=== PATIENT | female | born 1955 | race Caucasian/White ===

== ENCOUNTER 2020-08-30 11:32 | Observation (INO) | payer MEDICARE, OTHER ==
[~2020-08-30] VITALS: Ht 160 cm; Wt 93.9 kg
[2020-08-30 13:31] LABS: HEMOGLOBIN 13.5 gm/dl (12.3-15.3); RED BLOOD COUNT 4.61 M/UL (4.00-5.10); WHITE BLOOD COUNT 7.5 K/UL (4.5-11.0)
[2020-08-30] MEDS ORDERED: PROTONIX 40 MG40 M1 PO (15:19)
[2020-08-30] MEDS ORDERED: LIPITOR40 MG PO (15:20)
[2020-08-30] MEDS ORDERED: DITROPAN XL10 MG PO (15:20)
[2020-08-30] MEDS ORDERED: ELIQUIS 5 MG TAB5 MG PO (15:20)
[2020-08-30] MEDS ORDERED: PEPCID20 MG PO (15:20)
[2020-08-30] MEDS ORDERED: HYDROCHLOROTH12.5 MG PO (15:21)
[2020-08-30] MEDS ORDERED: VISTARIL 50 MG50 MG PO (15:22)
[2020-08-30] MEDS ORDERED: LOPRESSOR 50 MG50 MG PO (15:25)
[2020-08-30] MEDS ORDERED: ASPIRIN EC81 MG PO (15:46)
--- NOTE | 2020-08-31 10:45 | NUR ---
DR GUILLEN HERE TO SEE PT AND DO PEG WITH CARDIOVERSION. PROCEDURE STARTED AT 1027, 4MG VERSED, 50MG FENTANYL AND 25MG OF BENADRYL GIVEN DURING PROCEDURE, PT WAS SHOCKED AT 1042 WITH 200J AND NORMAL SINUS RYTHYM WAS OBTAINED AT THIS TIME. WILL CONTINUE TO MONITOR
--- NOTE | 2020-08-31 14:00 | NUR ---
NO CHANGE FROM PREVIOUS ASSESSMENT
[2020-09-01] MEDS ORDERED: BETAPACE 80MG T80 MG PO (10:30)
== END 2020-09-01 13:02 | disposition home or self-care (01) ==
LOC: ER1 11:32 → CDU 15:16 → PROG CARE 15:16
PROVIDERS: Physician Assistant Medical; ADMIT Internal Medicine
DX: I48.19 Other persistent atrial fibrillation (principal); I11.0 Hypertensive heart disease with heart failure; I50.31 Acute diastolic (congestive) heart failure; R32 Unspecified urinary incontinence; E78.5 Hyperlipidemia, unspecified; K21.9 Gastro-esophageal reflux disease without esophagitis; R19.7 Diarrhea, unspecified; R14.0 Abdominal distension (gaseous); Z79.01 Long term (current) use of anticoagulants; Z79.82 Long term (current) use of aspirin; Z79.899 Other long term (current) drug therapy; Z20.822 Contact with and (suspected) exposure to COVID-19
CPT/HCPCS: 71045; 80053; 82550; 82553; 83735; 83874; 83880; 84439; 84443; 84484; 85025; 85610; 92960; 93005; 93312; 93320; 96374; 96375; 96376; 99285; G0378; J1200; J1940; J2250; J3010; Q0177; U0002

== ENCOUNTER 2021-02-07 08:37 | Emergency (ER) | payer MEDICARE, OTHER ==
[~2021-02-07 08:37] MED LIST: ASPIRIN EC81 MG PO; BETAPACE 80MG T80 MG PO; DITROPAN XL10 MG PO; ELIQUIS 5 MG TAB5 MG PO; HYDROCHLOROTH12.5 MG PO; LIPITOR40 MG PO; LOPRESSOR 50 MG50 MG PO; PEPCID20 MG PO; PROTONIX 40 MG40 M1 PO; VISTARIL 50 MG50 MG PO
[2021-02-07 10:06] LABS: HEMOGLOBIN 14.5 gm/dl (12.3-15.3); RED BLOOD COUNT 5.05 M/UL (4.00-5.10); WHITE BLOOD COUNT 10.1 K/UL (4.5-11.0)
[2021-02-07 10:34] LABS: BUN/CREATININE RATIO 23 (0-10)
[2021-02-07] MEDS ORDERED: MACROBID 100 M100 MG PO (12:47)
== END 2021-02-07 13:06 | disposition home or self-care (01) ==
LOC: ER1 08:37
PROVIDERS: Physician Assistant
DX: N39.0 Urinary tract infection, site not specified (principal); I10 Essential (primary) hypertension; I48.91 Unspecified atrial fibrillation; Z90.710 Acquired absence of both cervix and uterus; Z79.01 Long term (current) use of anticoagulants
CPT/HCPCS: 71045; 80053; 81001; 82550; 82553; 83874; 83880; 84484; 85025; 93005; 99284; Q9967

== ENCOUNTER 2021-06-08 21:39 | Emergency (ER) | payer MEDICARE, OTHER ==
[~2021-06-08 21:39] MED LIST changes: +MACROBID 100 M100 MG PO
[2021-06-08 23:50] LABS: HEMOGLOBIN 14.4 gm/dl (12.3-15.3); RED BLOOD COUNT 4.99 M/UL (4.00-5.10); WHITE BLOOD COUNT 7.9 K/UL (4.5-11.0)
[2021-06-09 00:19] LABS: BUN/CREATININE RATIO 18 (0-10)
== END 2021-06-09 03:05 | disposition home or self-care (01) ==
LOC: ER1 21:39
PROVIDERS: Physician Assistant Medical
DX: I10 Essential (primary) hypertension (principal); I48.91 Unspecified atrial fibrillation
CPT/HCPCS: 71045; 80053; 82550; 82553; 83880; 84484; 85025; 93005; 99284

== ENCOUNTER 2021-10-04 00:21 | Emergency (ER) | payer MEDICARE, OTHER ==
[2021-10-04 04:18] LABS: HEMOGLOBIN 13.7 gm/dl (12.3-15.3); RED BLOOD COUNT 4.72 M/UL (4.00-5.10); WHITE BLOOD COUNT 10.6 K/UL (4.5-11.0)
== END 2021-10-04 05:34 | disposition home or self-care (01) ==
LOC: ER1 00:21
PROVIDERS: Family Medicine
DX: R19.00 Intra-abdominal and pelvic swelling, mass and lump, unspecified site (principal); I10 Essential (primary) hypertension; I48.91 Unspecified atrial fibrillation; K21.9 Gastro-esophageal reflux disease without esophagitis; E78.5 Hyperlipidemia, unspecified; Z79.82 Long term (current) use of aspirin; Z79.899 Other long term (current) drug therapy; Z79.01 Long term (current) use of anticoagulants
CPT/HCPCS: 71045; 80053; 82550; 82553; 83880; 84484; 85025; 93005; 99284